=== PATIENT | male | born 2000 | race Caucasian/White ===

== ENCOUNTER 2023-08-03 21:20 | Emergency (ER) | payer MEDICAID ==
[~2023-08-03] VITALS: Ht 193 cm; Wt 132.0 kg
[2023-08-03] MEDS: MORPHINE SULFATE 4 MG/ML INJ (FOR IV/IM USE) IV ONE (21:57)
[2023-08-03] MEDS ORDERED: PROPOFOL 200MG/20ML VIAL IV ONE (22:45)
[2023-08-03] MEDS ORDERED: KETAMINE HCL 50 MG/ML 10ML IV ONE (22:45)
[2023-08-03] MEDS: FENTANYL CITRATE/PF 50MCG/ML 2ML VIAL IV ONE (22:48)
[2023-08-03 23:00] VITALS: O2SAT 99
[2023-08-03] MEDS: KETAMINE HCL 50 MG/ML 10ML IV ONE (23:41)
[2023-08-03] MEDS: PROPOFOL 200MG/20ML VIAL IV ONE (23:41)
[2023-08-03] MEDS: ONDANSETRON HCL 4MG/2ML INJ IV ONE (23:42)
[2023-08-04] MEDS ORDERED: IBUP-2028 MT (00:47)
[2023-08-04 00:56] VITALS: BP 123/70; PULSE 70; RESP 18; TEMP 98.5
== END 2023-08-04 00:59 | disposition home or self-care (01) ==
LOC: ER 21:20
DX: S43.005A Unspecified dislocation of left shoulder joint, initial encounter (principal); S09.90XA Unspecified injury of head, initial encounter; Z90.49 Acquired absence of other specified parts of digestive tract; W18.39XA Other fall on same level, initial encounter; Y93.89 Activity, other specified; Y92.89 Other specified places as the place of occurrence of the external cause; Y99.8 Other external cause status
CPT/HCPCS: 73030; 70450; 23650; 96374; 96375; 99152; 99285; J3010; J3490; J2405; J2704; J2270; Z7610